=== PATIENT | female | born 1995 | race Caucasian/White ===

== ENCOUNTER → 2017-05-14 | Outpatient (CLI) | payer BC, OTHER ==
--- NOTE | 2017-05-14 21:25 | MRI ---
Procedure: MR THORACIC SPINE WITHOUT IV CONTRAST Exam Date: 05/14/2017 12:00 AM CDT Ordering Provider: BRINA OLSEN MD Clinical Indication: UPPER BACK PAIN Comparison: None. TECHNIQUE: Multiplanar, multisequence images of the thoracic spine were performed without IV contrast. Findings: The thoracic vertebral body height and alignment are normal. The marrow signal characteristics are benign. The visualized disc space heights are also unremarkable. There is adequate disc hydration. There is normal appearance of the thoracic cord. No abnormal cord signal. No significant central canal or neural foraminal stenosis is present. IMPRESSION: No significant central canal or neural foraminal stenosis in the thoracic spine. No abnormal cord signal. Electronically signed by: Amy Stahl MD 05/14/2017 9:23 PM CDT
== END | disposition home or self-care (01) ==
LOC: MRI 08:01
PROVIDERS: ATTEND Family Medicine
DX: M54.6 Pain in thoracic spine (principal)

== ENCOUNTER → 2017-06-18 | Outpatient (CLI) | payer OTHER | END | disposition home or self-care (01) | LOC: LAB.O 15:08 | PROVIDERS: ATTEND Psychiatry & Neurology Neurology | DX: K50.90 Crohn's disease, unspecified, without complications (principal); M81.8 Other osteoporosis without current pathological fracture; M32.10 Systemic lupus erythematosus, organ or system involvement unspecified; M54.12 Radiculopathy, cervical region; M06.9 Rheumatoid arthritis, unspecified; M35.00 Sjogren syndrome, unspecified; M35.3 Polymyalgia rheumatica; M33.22 Polymyositis with myopathy; M15.0 Primary generalized (osteo)arthritis; M31.6 Other giant cell arteritis; F90.9 Attention-deficit hyperactivity disorder, unspecified type; M33.90 Dermatopolymyositis, unspecified, organ involvement unspecified ==

== ENCOUNTER → 2017-07-01 | Outpatient (CLI) | payer OTHER ==
--- NOTE | 2017-07-01 22:36 | MRI ---
EXAM: Brain w/wo Contrast CLINICAL INDICATION: 22-year-old female with multiple sclerosis. COMPARISON: None. TECHNIQUE: Multiplanar, multi-sequence MR imaging of the brain pre-and post intravenous administration of gadolinium. FINDINGS: No abnormal signal is seen on the T2, FLAIR or diffusion weighted images. There is no evidence of intracranial hemorrhage, mass or edema. Midline structures are within normal limits. No abnormal post gadolinium enhancement. The ventricles and basal cisterns are normal in size and configuration. Major intracranial flow voids are identified. The paranasal sinuses and mastoid air cells are patent. IMPRESSION: 1. No abnormal increased signal intensity is present on FLAIR imaging to suggest demyelination. 2. No abnormal postcontrast enhancement. Electronically signed by: Teresa Tong MD 07/01/2017 10:34 PM [facility] Workstation: [id number]
--- NOTE | 2017-07-01 23:35 | MRI ---
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 PROCEDURE: MR CERVICAL SPINE WITHOUT THEN WITH IV CONTRAST. INDICATION: RADICULOPATHY. COMPARISON: None. TECHNIQUE: Multiplanar T1 and T2 MRI images of the cervical spine were acquired without administration of intravenous contrast. FINDINGS: The cervical vertebral bodies demonstrate normal height and alignment. The intervertebral disc spaces are relatively well-preserved. Normal marrow signal. The cervical cord demonstrates normal signal and morphology. No abnormal enhancement. C2-C3: No significant disc bulge. No spinal canal or neural foraminal narrowing. C3-C4: No significant disc bulge. No spinal canal or neural foraminal narrowing. C4-C5: No significant disc bulge. No spinal canal or neural foraminal narrowing. C5-C6: No significant disc bulge. No spinal canal or neural foraminal narrowing. C6-C7: No significant disc bulge. No spinal canal or neural foraminal narrowing. C7-T1: No significant disc bulge. No spinal canal or neural foraminal narrowing. The soft tissues of the neck are unremarkable. IMPRESSION: Overall unremarkable MRI of the cervical spine with and without contrast. No cord signal abnormality. Electronically signed by: Tj Dickerson MD 07/01/2017 11:33 PM [facility]
== END | disposition home or self-care (01) ==
LOC: MRI 11:05
PROVIDERS: ATTEND Psychiatry & Neurology Neurology
DX: G35 Multiple sclerosis (principal); G99.2 Myelopathy in diseases classified elsewhere; M54.12 Radiculopathy, cervical region; M54.16 Radiculopathy, lumbar region; Z01.812 Encounter for preprocedural laboratory examination

== ENCOUNTER → 2020-06-26 | Outpatient (CLI) | payer BC | LOC: LAB.O 08:11 | PROVIDERS: ATTEND Obstetrics & Gynecology | DX: O20.0 Threatened abortion (principal); Z3A.00 Weeks of gestation of pregnancy not specified ==

== ENCOUNTER → 2020-06-28 | Outpatient (CLI) | payer BC | LOC: LAB.O 08:20 | PROVIDERS: ATTEND Obstetrics & Gynecology | DX: O20.0 Threatened abortion (principal); Z3A.00 Weeks of gestation of pregnancy not specified ==